=== PATIENT | male | born 1965 | race Two or more races ===

== ENCOUNTER 2017-06-08 19:41 | Inpatient (IN) | payer OTHER ==
[2017-06-08 20:17] VITALS: BMI 31.9
--- NOTE | 2017-06-08 21:37 | HP ---
COWS - Scale Resting Pulse: 0= [place] 80 or Below Sweatin= Chills/Flushing Restless Observation: 1= Difficult to Sit Still Pupil Size: 0= Normal to Room Light Bone or Joint Aches: 2= Severe Diffuse Aches Runny Nose/ Eye Tearin= Runny Nose/Eyes GI Upset > 30mins: 2= Nausea/Diarrhea Tremor Observation: 2= Slight Tremor Visible Yawning Observation: 1= 1-2x During Session Anxiety or Irritability: 2=Irritable/Anxious Goose Flesh Skin: 0=Smooth Skin COWS Score: 13 Admission ROS S - [facility] Chief Complaint: withdrawal sx Allergies/Adverse Reactions: Allergies Allergy/AdvReac Type Severity Reaction Status Date / Time No Known Allergies Allergy Verified 06/08/17 21:39 History of Present Illness: 51 years old male with long history of opiate dependence denies medical issue has depression is admitted to detox Exam Limitations: No Limitations - Ebola screening Have you traveled outside of the country in the last 21 days: No Have you had contact with anyone from an Ebola affected area: No Have you been sick,other than usual withdrawal symptoms: No Do you have a fever: No - Review of Systems Constitutional: Changes in sleep, Weight Stable EENT: reports: Nose Congestion Respiratory: reports: No Symptoms reported Cardiac: reports: No Symptoms Reported GI: reports: Nausea, Poor Fluid Intake, Abdominal cramping : reports: No Symptoms Reported Musculoskeletal: reports: Back Pain, Joint Pain, Muscle Pain, Neck Pain Integumentary: reports: Change in Color (both hands) Neuro: reports: Tremors Endocrine: reports: No Symptoms Reported Hematology: reports: No Symptoms Reported Psychiatric: reports: Judgement Intact, Orientated x3, Depressed Other Systems: Reviewed and Negative Patient History - Patient Medical History Hx Anemia: No Hx Asthma: No Hx Chronic Obstructive Pulmonary Disease (COPD): No Hx Cancer: No Hx Cardiac Disorders: No Hx Congestive Heart Failure: No Hx Hypertension: No Hx Hypercholesterolemia: No Hx Pacemaker: No HX Cerebrovascular Accident: No Hx Seizures: No Hx Dementia: No Hx Diabetes: No Hx Gastrointestinal Disorders: No Hx Liver Disease: No Hx Genitourinary Disorders: No Hx Sexually Transmitted Disorders: No Hx Renal Disease (ESRD): No Hx Thyroid Disease: No Hx Human Immunodeficiency Virus (HIV): No Hx Hepatitis C: No Hx Depression: Yes Hx Suicide Attempt: No Hx Bipolar Disorder: No Hx Schizophrenia: No - Patient Surgical History Past Surgical History: No - PPD History Previous Implant?: Yes Documented Results: Negative w/o proof Implanted On Prior R Admission?: No PPD to be Administered?: Yes - Smoking Cessation Smoking history: Never smoked Have you smoked in the past 12 months: No Hx Chewing Tobacco Use: No Initiated information on smoking cessation: No - Substance & Tx. History Hx Alcohol Use: No Hx Substance Use: Yes Substance Use Type: Heroin Hx Substance Use Treatment: Yes (2009) - Substances Abused Heroin Route: Injection Frequency: Daily Amount used: 14 bags Age of first use: 10 Date of Last Use: 06/07/17 Family Disease History - Family Disease History Family Disease History: Other: Father, Mother Other Family History: only child Admission Physical Exam [facility] - Vital Signs Vital Signs: Vital Signs - 24 hr 06/08/17 20:12 Temperature 99.6 F Pulse Rate 55 L Respiratory 20 Rate Blood Pressure 134/59 - Physical General Appearance: Yes: Appropriately Dressed, Mild Distress, Tremorous, Irritable, Sweating, Anxious HEENTM: Yes: Hearing grossly Normal, Normal ENT Inspection, Normocephalic, Normal Voice Respiratory: Yes: Chest Non-Tender, Lungs Clear, Normal Breath Sounds, No Respiratory Distress, No Accessory Muscle Use Neck: Yes: Supple, Trachea in good position Breast: Yes: Breasts Symetrical Cardiology: Yes: Regular Rhythm, S1, S2, Bradycardia Abdominal: Yes: Non Tender, Soft, Increased Bowel Sounds Genitourinary: Yes: Within Normal Limits Back: Yes: Normal Inspection Musculoskeletal: Yes: full range of Motion, Gait Steady, Back pain, Muscle Pain Extremities: Yes: Normal Inspection, Normal Range of Motion, Non-Tender, Tremors Neurological: Yes: Fully Oriented, Alert, Motor Strength 5/5, Normal Response, Depressed Affect Integumentary: Yes: Warm, Track [place] Lymphatic: Yes: Within Normal Limits - Diagnostic (1) Opioid dependence with withdrawal Current Visit: Yes Status: Acute (2) Depression (emotion) Current Visit: Yes Status: Suspected Qualifiers: Depression Type: dysthymia Qualified Code(s): F34.1 - Dysthymic disorder Cleared for Admission [facility] - Detox or Rehab [facility] Level of Care: Medically Managed Detox Regimen/Protocol: Methadone [facility] Breath Alcohol Content Breath Alcohol Content: 0 Vital Signs - Vital Signs Vital Signs Refused: No Temperature: 99.6 F Temperature Source: Oral Pulse Rate: 55 Respiratory Rate: 20 Blood Pressure: 134/59 BP Location: Left Arm Blood Pressure Position: Sitting - Height Height: 5 ft 7 in - Weight Weight: 204 lb Weight Measurement Method: Standing Scale Body Mass Index (BMI): 31.9 - Bowel Function Bowel Movement: Yes Urine Drug Screen - Control Is Test Valid: Yes - Results Drug Screen Negative: No Urine Drug Screen Results: OPI-Opiates, MTD-Methadone
[2017-06-08] MEDS ORDERED: P-EPHED 60MG/TRIPROLIDI 2.5MG TABLET PO PRN (21:46)
[2017-06-08] MEDS ORDERED: ACETAMINOPHEN 325 MG TABLET (FP) PO PRN (21:46)
[2017-06-08] MEDS ORDERED: IBUPROFEN 400 MG TABLET (FP) PO PRN (21:46)
[2017-06-08] MEDS ORDERED: MAGNESIUM CITRATE 300 ML BOTTLE PO PRN (21:46)
[2017-06-08] MEDS ORDERED: LOPERAMIDE HCL 2 MG CAPSULE PO PRN (21:46)
[2017-06-08] MEDS ORDERED: MAGNESIUM HYDROX 2400MG/30ML ORAL SUSPENSION 30 ML CUP PO PRN (21:46)
[2017-06-08] MEDS ORDERED: guaiFENesin/D-METHORPHAN HB 10 ML UNIT-DOSE CUPS PO PRN (21:46)
[2017-06-08] MEDS ORDERED: MAG HYDROX/AL HYDROX/SIMETH 30 ML UNIT-DOSE CUP PO PRN (21:46)
[2017-06-08] MEDS ORDERED: MENTHOL/PHENOL 1 EACH UD MM PRN (21:46)
[2017-06-08] MEDS ORDERED: METHADONE HCL 10 MG TABLET (FOR DETOX USE ONLY) PO ONE ×2 (21:46→23:00)
[2017-06-08] MEDS ORDERED: BACITRACIN 0.9 GM PACKET TP ONE (21:48)
[2017-06-08] MEDS ORDERED: cloNIDine HCL 0.1 MG TABLET PO PRN (21:49)
[2017-06-08] MEDS: diazePAM 5 MG TABLET PO PRN (22:55)
[2017-06-08] MEDS: CYCLOBENZAPRINE HCL 10 MG TABLET (FP) PO SCH (22:56)
[2017-06-08] MEDS: THIAMINE HCL 100 MG TABLET (FP) PO SCH (22:56)
[2017-06-09] MEDS: diazePAM 5 MG TABLET PO PRN ×3 (05:44→22:10)
[2017-06-09] MEDS: CYCLOBENZAPRINE HCL 10 MG TABLET (FP) PO SCH ×3 (05:44→22:10)
--- NOTE | 2017-06-09 09:30 | CONSULT ---
[facility] Psychiatric Consult - Data Date of interview: 06/09/17 Admission source: Self-referred Identifying data: Mr Perez is a 51 years old single male, father of 5 children, unemployedon SSD, domociled seeking detox treatment for heroin Substance Abuse History: Reports that he started using heroin at age 10, consumes 14 bags daily. Last used on 06/07/17 Medical History: Unremakable Psychiatric History: Denies history of previous psychiaric treatment Physical/Sexual Abuse/Trauma History: Denies history of emotional, physical or sexual abuse as well as DV relationship. Serving in the [employer]. Reports going to a tour to [employer] last year Additional Comment: Reports history of multiple arrests including 3 felony convictions. No parole/probation at present Mental Status Exam - Mental Status Exam Alert and Oriented to: Time, Place, Person Cognitive Function: Fair Patient Appearance: Well Groomed Mood: Depressed Affect: Constricted Patient Behavior: Cooperative Speech Pattern: Clear Voice Loudness: Normal Thought Process: Intact, Goal Oriented Hallucinations: Denies Suicidal Ideation: Denies Homicidal Ideation: Denies Insight/Judgement: Poor Sleep: Fair Appetite: Poor Muscle strength/Tone: Normal Gait/Station: Normal Psychiatric Findings - Problem List ([place] 1, 2,3) (1) Substance induced mood disorder Current Visit: Yes Status: Acute (2) Opioid dependence with withdrawal Current Visit: Yes Status: Acute - Initial Treatment Plan Initial Treatment Plan: Continue inpatient detoxification
[2017-06-09] MEDS ORDERED: METHADONE HCL 10 MG TABLET (FOR DETOX USE ONLY) PO ONE (10:00)
[2017-06-09] MEDS: PRENATAL VITAMINS W/ FOLIC ACID TABLET (FP) PO SCH (10:17)
[2017-06-09 10:48] LABS: MCH 29.9 pg (25.7-33.7); MCHC 34.1 g/dl (32.0-35.9); MEAN CELL VOLUME 87.8 fl (80-96); MEAN PLT VOLUME 8.4 fl (7.5-11.1); PLATELET COUNT 359 K/MM3 (134-434); RDW 13.7 % (11.9-15.9); WHITE BLOOD COUNT 13.3 K/mm3 (4.0-10.0)
[2017-06-09 10:58] LABS: ALBUMIN 3.9 g/dl (3.4-5.0); ALK PHOS 60 U/L (45-117); ANION GAP 11 (8-16); BILIRUBIN,TOTAL 1.2 mg/dL (0.2-1.0); CO2 28 mmol/L (21-32); CREATININE 0.8 mg/dL (0.7-1.3); GLUCOSE,RANDOM 107 mg/dL (74-106); SGOT/AST 16 U/L (15-37); SGPT/ALT 20 U/L (12-78); TOT PROT 7.6 g/dl (6.4-8.2)
--- NOTE | 2017-06-09 14:04 | PN ---
S COWS - Scale Resting Pulse: 0= [place] 80 or Below Sweatin= Chills/Flushing Restless Observation: 1= Difficult to Sit Still Pupil Size: 0= Normal to Room Light Bone or Joint Aches: 0= None Runny Nose/ Eye Tearin= Runny Nose/Eyes GI Upset > 30mins: 2= Nausea/Diarrhea Tremor Observation of Outstretched Hands: 0= None Yawning Observation: 1= 1-2x During Session Anxiety or Irritability: 2=Irritable/Anxious Goose Flesh Skin: 3=Piloerection COWS Score: 12 S Progress Note (SOAP) Subjective: Nausea, Diarrhea, Sweating, Body Aches. Objective: PT. A & O X 2 (DISORIENTED ABOUT DAY / DATE). PT. OBSERVED AMBULATING ON UNIT. NO ACUTE DISTRESS. PT. DENIES CHEST PAIN. 06/09/17 14:00 Vital Signs Temperature 99.4 F 06/09/17 10:26 Pulse Rate 60 06/09/17 10:26 Respiratory Rate 18 06/09/17 10:26 Blood Pressure 145/81 06/09/17 10:26 O2 Sat by Pulse Oximetry (%) Laboratory Tests 06/09/17 06/09/17 06/09/17 08:00 08:00 08:00 WBC 13.3 H RBC 4.98 Hgb 14.9 Hct 43.7 MCV 87.8 MCH 29.9 MCHC 34.1 RDW 13.7 Plt Count 359 MPV 8.4 Sodium 139 Potassium 3.4 L Chloride 100 Carbon Dioxide 28 Anion Gap 11 BUN 16 Creatinine 0.8 Creat Clearance w eGFR > 60 Random Glucose 107 H Calcium 9.0 Total Bilirubin 1.2 H AST 16 ALT 20 Alkaline Phosphatase 60 Total Protein 7.6 Albumin 3.9 RPR Titer Nonreactive LABS NOTED. UA RESULTS PENDING. 06/09/17 14:02 Assessment: 06/09/17 14:01 WITHDRAWAL SYMPTOMS. HYPOKALEMIA. LEUKOCYTOSIS. Plan: CONTINUE DETOX. REPEAT CBC ON 06/11/2017 FOR ELEVATED WBC COUNT. K, 20 MEQ X 1 NOW, THEN 20 MEQ PO BID FOR LOW ADMISSION K LEVEL.
[2017-06-09] MEDS ORDERED: POTASSIUM CHLORIDE TABS 20 MEQ TABLET.ER (FP) PO ONE (14:30)
[2017-06-09] MEDS: POTASSIUM CHLORIDE TABS 20 MEQ TABLET.ER (FP) PO SCH (17:33)
[2017-06-09] MEDS: diphenhydrAMINE HCL 50 MG CAPSULE PO PRN (22:10)
[2017-06-09] MEDS: THIAMINE HCL 100 MG TABLET (FP) PO SCH (22:10)
[2017-06-10] MEDS: CYCLOBENZAPRINE HCL 10 MG TABLET (FP) PO SCH ×3 (06:12→22:21)
[2017-06-10] MEDS ORDERED: METHADONE HCL 5 MG TABLET (FOR DETOX USE ONLY) PO ONE (10:00)
[2017-06-10] MEDS: PRENATAL VITAMINS W/ FOLIC ACID TABLET (FP) PO SCH (10:14)
[2017-06-10] MEDS: POTASSIUM CHLORIDE TABS 20 MEQ TABLET.ER (FP) PO SCH ×2 (10:14→17:56)
--- NOTE | 2017-06-10 15:58 | PN ---
S COWS - Scale Resting Pulse: 1= [place] 81-100 Sweatin=Flushed/Facial Moisture Restless Observation: 3= Extraneous Movement Pupil Size: 0= Normal to Room Light Bone or Joint Aches: 2= Severe Diffuse Aches Runny Nose/ Eye Tearin= Runny Nose/Eyes GI Upset > 30mins: 3= Vomiting/Diarrhea Tremor Observation of Outstretched Hands: 2= Slight Tremor Visible Yawning Observation: 1= 1-2x During Session Anxiety or Irritability: 2=Irritable/Anxious Goose Flesh Skin: 0=Smooth Skin COWS Score: 18 S Progress Note (SOAP) Subjective: Tremor, chills, interrupted sleep, diarrhea Objective: 06/10/17 15:55 Last Vital Signs Temp Pulse Resp BP Pulse Ox 98.2 F 90 18 127/72 06/10/17 13:35 06/10/17 13:35 06/10/17 13:35 06/10/17 13:35 Laboratory Tests 06/09/17 06/09/17 06/09/17 08:00 08:00 08:00 WBC 13.3 H RBC 4.98 Hgb 14.9 Hct 43.7 MCV 87.8 MCH 29.9 MCHC 34.1 RDW 13.7 Plt Count 359 MPV 8.4 Sodium 139 Potassium 3.4 L Chloride 100 Carbon Dioxide 28 Anion Gap 11 BUN 16 Creatinine 0.8 Creat Clearance w eGFR > 60 Random Glucose 107 H Calcium 9.0 Total Bilirubin 1.2 H AST 16 ALT 20 Alkaline Phosphatase 60 Total Protein 7.6 Albumin 3.9 RPR Titer Nonreactive Labs noted: wbc 13.3, k 3.4 Assessment: 06/10/17 15:57 Withdrawal symptoms Noted with leukocytosis and mild hypokalemia Plan: Continue detox Leukocytosis: repeat CBC (already ordered for tomorrow) Hypokalemia: continue PO K+ supplement, repeat K level in AM Admission UA reordered (was not done)
[2017-06-10] MEDS: diazePAM 5 MG TABLET PO PRN (22:21)
[2017-06-10] MEDS: THIAMINE HCL 100 MG TABLET (FP) PO SCH (22:21)
[2017-06-10] MEDS: diphenhydrAMINE HCL 50 MG CAPSULE PO PRN (22:21)
[2017-06-11] MEDS: CYCLOBENZAPRINE HCL 10 MG TABLET (FP) PO SCH ×3 (05:20→22:07)
[2017-06-11] MEDS: diazePAM 5 MG TABLET PO PRN ×2 (05:20→10:06)
[2017-06-11 09:46] LABS: BASOPHIL 0.2 % (0-2.0); EOSINOPHIL 1.3 % (0-4.5); MCH 29.5 pg (25.7-33.7); MCHC 32.8 g/dl (32.0-35.9); MEAN PLT VOLUME 8.2 fl (7.5-11.1); NEUTROPHILS 58.1 % (42.8-82.8); PLATELET COUNT 359 K/MM3 (134-434); RDW 13.8 % (11.9-15.9); WHITE BLOOD COUNT 12.5 K/mm3 (4.0-10.0)
[2017-06-11 09:52] LABS: URINE APPEARANCE CLOUDY; URINE BILIRUBIN NEGATIVE (NEGATIVE); URINE BLOOD NEGATIVE (NEGATIVE); URINE COLOR AMBER; URINE GLUCOSE (UA) NEGATIVE (NEGATIVE); URINE KETONE NEGATIVE (NEGATIVE); URINE NITRITE NEGATIVE (NEGATIVE); URINE UROBILINOGEN 4.0 E.U/dl mg/dL (0.2-1.0)
[2017-06-11 09:53] LABS: URINE PROTEIN 1+ (NEGATIVE)
[2017-06-11] MEDS ORDERED: METHADONE HCL 5 MG TABLET (FOR DETOX USE ONLY) PO ONE (10:00)
[2017-06-11 10:02] LABS: URINE BACTERIA RARE /hpf (NONE SEEN); URINE MUCUS MANY; URINE RBC 12 /hpf (0-3); URINE WBC 272 /hpf (3-5); YEAST FEW
[2017-06-11] MEDS: PRENATAL VITAMINS W/ FOLIC ACID TABLET (FP) PO SCH (10:06)
[2017-06-11] MEDS: POTASSIUM CHLORIDE TABS 20 MEQ TABLET.ER (FP) PO SCH ×2 (10:06→17:07)
--- NOTE | 2017-06-11 11:22 | PN ---
[facility] Progress Note (SOAP) Subjective: Tremors, Stomach Cramping, Interrupted Sleep, Body Aches, sweating. Objective: PT. A & O X 3. NO ACUTE DISTRESS. 06/11/17 11:20 Vital Signs Temperature 98.5 F 06/11/17 05:51 Pulse Rate 72 06/11/17 05:51 Respiratory Rate 18 06/11/17 05:51 Blood Pressure 148/91 06/11/17 05:51 O2 Sat by Pulse Oximetry (%) Laboratory Tests 06/09/17 06/09/17 06/09/17 08:00 08:00 08:00 WBC 13.3 H RBC 4.98 Hgb 14.9 Hct 43.7 MCV 87.8 MCH 29.9 MCHC 34.1 RDW 13.7 Plt Count 359 MPV 8.4 Neutrophils % Lymphocytes % Monocytes % Eosinophils % Basophils % Sodium 139 Potassium 3.4 L Chloride 100 Carbon Dioxide 28 Anion Gap 11 BUN 16 Creatinine 0.8 Creat Clearance w eGFR > 60 Random Glucose 107 H Calcium 9.0 Total Bilirubin 1.2 H AST 16 ALT 20 Alkaline Phosphatase 60 Ammonia Total Protein 7.6 Albumin 3.9 Urine Color Urine Appearance Urine pH Urine Protein Urine Glucose (UA) Urine Ketones Urine Blood Urine Nitrite Urine Bilirubin Urine Urobilinogen Urine RBC Urine WBC Ur Epithelial Cells Urine Bacteria Urine Mucus Urine Yeast RPR Titer Nonreactive 06/11/17 06/11/17 06/11/17 07:00 07:00 07:00 WBC 12.5 H RBC 5.37 Hgb 15.9 Hct 48.4 MCV 90.0 MCH 29.5 MCHC 32.8 RDW 13.8 Plt Count 359 MPV 8.2 Neutrophils % 58.1 Lymphocytes % 33.8 Monocytes % 6.6 Eosinophils % 1.3 Basophils % 0.2 Sodium Potassium 3.8 Chloride Carbon Dioxide Anion Gap BUN Creatinine Creat Clearance w eGFR Random Glucose Calcium Total Bilirubin AST ALT Alkaline Phosphatase Ammonia 33.43 H Total Protein Albumin Urine Color Urine Appearance Urine pH Urine Protein Urine Glucose (UA) Urine Ketones Urine Blood Urine Nitrite Urine Bilirubin Urine Urobilinogen Urine RBC Urine WBC Ur Epithelial Cells Urine Bacteria Urine Mucus Urine Yeast RPR Titer 06/11/17 08:00 WBC RBC Hgb Hct MCV MCH MCHC RDW Plt Count MPV Neutrophils % Lymphocytes % Monocytes % Eosinophils % Basophils % Sodium Potassium Chloride Carbon Dioxide Anion Gap BUN Creatinine Creat Clearance w eGFR Random Glucose Calcium Total Bilirubin AST ALT Alkaline Phosphatase Ammonia Total Protein Albumin Urine Color [place] Urine Appearance Cloudy Urine pH 7.0 Urine Protein 1+ H Urine Glucose (UA) Negative Urine Ketones Negative Urine Blood Negative Urine Nitrite Negative Urine Bilirubin Negative Urine Urobilinogen 4.0 e.u/dl Urine RBC 12 Urine WBC 272 Ur Epithelial Cells Rare Urine Bacteria Rare Urine Mucus Many Urine Yeast Few RPR Titer LABS NOTED. RESULTS OF REPEAT CBC, K, AND AMMONIA LEVELS NOTED. 06/11/17 11:24 Assessment: 06/11/17 11:20 WITHDRAWAL SYMPTOMS. Plan: CONTINUE DETOX. START LACTULOSE, 20 GM PO BID. D/C ACETAMINOPHEN. REPEAT UA WITH URINE C + S FOR ELEVATED UA WBC LEVEL. START PROHYLACTIC BACTRIM PO BID X 10 DAYS FOR POSSIBLE UTI. INCREASE DAILY PO FLUID INTAKE.
[2017-06-11] MEDS: LACTULOSE 20 GM/30 ML UDC (FOR ORAL USE ONLY) PO SCH ×2 (13:01→22:08)
[2017-06-11] MEDS: SULFAMETHOXAZOLE/TRIMETHOPRIM 800MG/160MG D.S. TABLET PO SCH ×2 (13:01→22:07)
--- NOTE | 2017-06-11 17:02 | EKG ---
Test Reason : Blood Pressure : / mmHG Vent. Rate : 060 BPM Atrial Rate : 060 BPM P-R Int : 112 ms QRS Dur : 094 ms QT Int : 446 ms P-R-T Axes : 063 010 056 degrees QTc Int : 446 ms NORMAL SINUS RHYTHM WITH SINUS ARRHYTHMIA NORMAL ECG NO PREVIOUS ECGS AVAILABLE Confirmed by ETHAN BENAVIDEZ, JETT ([id number]) on 06/11/2017 5:02:17 PM Referred By: Confirmed By:JETT LONG MD
[2017-06-11] MEDS: THIAMINE HCL 100 MG TABLET (FP) PO SCH (22:07)
[2017-06-11] MEDS: diphenhydrAMINE HCL 50 MG CAPSULE PO PRN (22:08)
[2017-06-12] MEDS: CYCLOBENZAPRINE HCL 10 MG TABLET (FP) PO SCH ×3 (05:34→22:41)
[2017-06-12] MEDS ORDERED: ONDANSETRON *ODT* 4 MG TABLET SL PRN (09:49)
[2017-06-12] MEDS ORDERED: LIDOCAINE 5% TOPICAL PATCH TP ONE (09:50)
[2017-06-12] MEDS ORDERED: METHADONE HCL 10 MG TABLET (FOR DETOX USE ONLY) PO ONE (10:00)
[2017-06-12] MEDS: PRENATAL VITAMINS W/ FOLIC ACID TABLET (FP) PO SCH (10:44)
[2017-06-12] MEDS: POTASSIUM CHLORIDE TABS 20 MEQ TABLET.ER (FP) PO SCH ×2 (10:44→17:18)
[2017-06-12] MEDS: LACTULOSE 20 GM/30 ML UDC (FOR ORAL USE ONLY) PO SCH ×2 (10:45→22:40)
[2017-06-12] MEDS: SULFAMETHOXAZOLE/TRIMETHOPRIM 800MG/160MG D.S. TABLET PO SCH ×2 (10:45→22:40)
--- NOTE | 2017-06-12 12:00 | PN ---
[facility] Progress Note (SOAP) Subjective: Body Aches, Interrupted Sleep, Nausea,H/A, Diarrhea. Objective: PT. A & O X 2 (DISORIENTED ABOUT DAY /DATE). PT. OBSERVED AMBULATING ON UNIT. NO ACUTE DISTRESS. 06/12/17 11:56 Vital Signs Temperature 98.4 F 06/12/17 09:03 Pulse Rate 98 H 06/12/17 09:03 Respiratory Rate 18 06/12/17 09:03 Blood Pressure 112/68 06/12/17 09:03 O2 Sat by Pulse Oximetry (%) Laboratory Tests 06/09/17 06/09/17 06/09/17 08:00 08:00 08:00 WBC 13.3 H RBC 4.98 Hgb 14.9 Hct 43.7 MCV 87.8 MCH 29.9 MCHC 34.1 RDW 13.7 Plt Count 359 MPV 8.4 Neutrophils % Lymphocytes % Monocytes % Eosinophils % Basophils % Sodium 139 Potassium 3.4 L Chloride 100 Carbon Dioxide 28 Anion Gap 11 BUN 16 Creatinine 0.8 Creat Clearance w eGFR > 60 Random Glucose 107 H Calcium 9.0 Total Bilirubin 1.2 H AST 16 ALT 20 Alkaline Phosphatase 60 Ammonia Total Protein 7.6 Albumin 3.9 Urine Color Urine Appearance Urine pH Ur Specific [place] Urine Protein Urine Glucose (UA) Urine Ketones Urine Blood Urine Nitrite Urine Bilirubin Urine Urobilinogen Urine RBC Urine WBC Ur Epithelial Cells Urine Bacteria Urine Mucus Urine Yeast RPR Titer Nonreactive 06/11/17 06/11/17 06/11/17 07:00 07:00 07:00 WBC 12.5 H RBC 5.37 Hgb 15.9 Hct 48.4 MCV 90.0 MCH 29.5 MCHC 32.8 RDW 13.8 Plt Count 359 MPV 8.2 Neutrophils % 58.1 Lymphocytes % 33.8 Monocytes % 6.6 Eosinophils % 1.3 Basophils % 0.2 Sodium Potassium 3.8 Chloride Carbon Dioxide Anion Gap BUN Creatinine Creat Clearance w eGFR Random Glucose Calcium Total Bilirubin AST ALT Alkaline Phosphatase Ammonia 33.43 H Total Protein Albumin Urine Color Urine Appearance Urine pH Ur Specific [place] Urine Protein Urine Glucose (UA) Urine Ketones Urine Blood Urine Nitrite Urine Bilirubin Urine Urobilinogen Urine RBC Urine WBC Ur Epithelial Cells Urine Bacteria Urine Mucus Urine Yeast RPR Titer 06/11/17 08:00 WBC RBC Hgb Hct MCV MCH MCHC RDW Plt Count MPV Neutrophils % Lymphocytes % Monocytes % Eosinophils % Basophils % Sodium Potassium Chloride Carbon Dioxide Anion Gap BUN Creatinine Creat Clearance w eGFR Random Glucose Calcium Total Bilirubin AST ALT Alkaline Phosphatase Ammonia Total Protein Albumin Urine Color [place] Urine Appearance Cloudy Urine pH 7.0 Ur Specific [place] 1.020 Urine Protein 1+ H Urine Glucose (UA) Negative Urine Ketones Negative Urine Blood Negative Urine Nitrite Negative Urine Bilirubin Negative Urine Urobilinogen 4.0 e.u/dl Urine RBC 12 Urine WBC 272 Ur Epithelial Cells Rare Urine Bacteria Rare Urine Mucus Many Urine Yeast Few RPR Titer LABS NOTED. REPEAT UA AND URINE C + S NOT YET COLLECTED. 06/12/17 11:58 Assessment: 06/12/17 11:57 WITHDRAWAL SYMPTOMS. Plan: CONTINUE DETOX. INCREASE DAILY PO FLUID INTAKE.
[2017-06-12] MEDS ORDERED: LIDOCAINE PATCH REMOVAL MC SCH (22:00)
[2017-06-12] MEDS: THIAMINE HCL 100 MG TABLET (FP) PO SCH (22:41)
[2017-06-13] MEDS: diphenhydrAMINE HCL 50 MG CAPSULE PO PRN (00:33)
[2017-06-13] MEDS: CYCLOBENZAPRINE HCL 10 MG TABLET (FP) PO SCH ×2 (05:33→14:08)
[2017-06-13] MEDS ORDERED: METHADONE HCL 5 MG TABLET (FOR DETOX USE ONLY) PO ONE (06:00)
[2017-06-13] MEDS: SULFAMETHOXAZOLE/TRIMETHOPRIM 800MG/160MG D.S. TABLET PO SCH (10:55)
[2017-06-13] MEDS: LACTULOSE 20 GM/30 ML UDC (FOR ORAL USE ONLY) PO SCH (10:55)
[2017-06-13] MEDS: PRENATAL VITAMINS W/ FOLIC ACID TABLET (FP) PO SCH (10:55)
[2017-06-13] MEDS: POTASSIUM CHLORIDE TABS 20 MEQ TABLET.ER (FP) PO SCH (13:35)
[2017-06-13 14:00] VITALS: BP 124/84; PULSE 85; TEMP 97
--- NOTE | 2017-06-13 14:56 | PN ---
[facility] Progress Note Note: Asked to reevaluate the patient due to his inappropriate,reluctant and manipulative behavior upon discharge from the unit.He appears stable,with clear comprehensive speech,euthymic mood with full range of affect congruent to mood, not suicidal,not homicidal.patient has not show evidence of psychosis.Patient reports he is ready for discharge to inpatient rehabilitation and waiting for the referral.Patient is stable for discharge today.
--- NOTE | 2017-06-13 15:09 | DS ---
[facility] Detox Discharge Summary Admission Date: 06/08/17 Discharge Date: 06/13/17 - History Present History: Opioid Dependence Additional Comments: PATIENT REFERRED TO [facility] ([place], [place] FOR AFTERCARE. DESPITE RECOMMENDATION FROM [employer], PATIENT DID NOT SUBMIT URINE C + S PRESCRIBED ON WHILE ADMITTED FOR DETOX. COPIES OF ALL LAB VALUES DRAWN WHILE PATIENT ADMITTED FOR DETOX GIVEN TO PATIENT AT TIME OF DISCHARGE. PATIENT ADVISED TO FOLLOW-UP WITH [facility] ([place], [place] AFTER DISCHARGE FROM DETOX FOR MEDICAL ASSESSMENT. PATIENT WAS DISCHARGED FROM UNIT IN STABLE MEDICAL CONDITION. Pertinent Past History: Depression. - Physical Exam Results Vital Signs: Vital Signs Temperature 97.0 F L 06/13/17 13:58 Pulse Rate 85 06/13/17 13:58 Respiratory Rate 16 06/13/17 13:58 Blood Pressure 124/84 06/13/17 13:58 O2 Sat by Pulse Oximetry (%) Pertinent Admission Physical Exam Findings: WITHDRAWAL SYMPTOMS. Laboratory Tests 06/09/17 06/09/17 06/09/17 08:00 08:00 08:00 WBC 13.3 H RBC 4.98 Hgb 14.9 Hct 43.7 MCV 87.8 MCH 29.9 MCHC 34.1 RDW 13.7 Plt Count 359 MPV 8.4 Neutrophils % Lymphocytes % Monocytes % Eosinophils % Basophils % Sodium 139 Potassium 3.4 L Chloride 100 Carbon Dioxide 28 Anion Gap 11 BUN 16 Creatinine 0.8 Creat Clearance w eGFR > 60 Random Glucose 107 H Calcium 9.0 Total Bilirubin 1.2 H AST 16 ALT 20 Alkaline Phosphatase 60 Ammonia Total Protein 7.6 Albumin 3.9 Urine Color Urine Appearance Urine pH Ur Specific [place] Urine Protein Urine Glucose (UA) Urine Ketones Urine Blood Urine Nitrite Urine Bilirubin Urine Urobilinogen Urine RBC Urine WBC Ur Epithelial Cells Urine Bacteria Urine Mucus Urine Yeast RPR Titer Nonreactive 06/11/17 06/11/17 06/11/17 07:00 07:00 07:00 WBC 12.5 H RBC 5.37 Hgb 15.9 Hct 48.4 MCV 90.0 MCH 29.5 MCHC 32.8 RDW 13.8 Plt Count 359 MPV 8.2 Neutrophils % 58.1 Lymphocytes % 33.8 Monocytes % 6.6 Eosinophils % 1.3 Basophils % 0.2 Sodium Potassium 3.8 Chloride Carbon Dioxide Anion Gap BUN Creatinine Creat Clearance w eGFR Random Glucose Calcium Total Bilirubin AST ALT Alkaline Phosphatase Ammonia 33.43 H Total Protein Albumin Urine Color Urine Appearance Urine pH Ur Specific [place] Urine Protein Urine Glucose (UA) Urine Ketones Urine Blood Urine Nitrite Urine Bilirubin Urine Urobilinogen Urine RBC Urine WBC Ur Epithelial Cells Urine Bacteria Urine Mucus Urine Yeast RPR Titer 06/11/17 08:00 WBC RBC Hgb Hct MCV MCH MCHC RDW Plt Count MPV Neutrophils % Lymphocytes % Monocytes % Eosinophils % Basophils % Sodium Potassium Chloride Carbon Dioxide Anion Gap BUN Creatinine Creat Clearance w eGFR Random Glucose Calcium Total Bilirubin AST ALT Alkaline Phosphatase Ammonia Total Protein Albumin Urine Color [place] Urine Appearance Cloudy Urine pH 7.0 Ur Specific [place] 1.020 Urine Protein 1+ H Urine Glucose (UA) Negative Urine Ketones Negative Urine Blood Negative Urine Nitrite Negative Urine Bilirubin Negative Urine Urobilinogen 4.0 e.u/dl Urine RBC 12 Urine WBC 272 Ur Epithelial Cells Rare Urine Bacteria Rare Urine Mucus Many Urine Yeast Few RPR Titer LABS NOTED. - Treatment Hospital Course: Detox Protocol Followed, Detoxed Safely, Responded well, Discharged Condition Good, Rehab Referral Accepted Patient has Accepted a Rehab Referral to: [facility] ([place], [place] - Medication Discharge Medications: Ambulatory Orders NK [No Known Home Medication] 06/08/17 - Diagnosis (1) Opioid dependence with withdrawal Current Visit: Yes Status: Acute (2) Substance induced mood disorder Current Visit: Yes Status: Acute (3) Depression (emotion) Current Visit: Yes Status: Suspected Qualifiers: Depression Type: dysthymia Qualified Code(s): F34.1 - Dysthymic disorder - AMA Did Patient Leave Against Medical Advice: No
== END 2017-06-13 15:00 | disposition home or self-care (01) | DRG 773 ==
LOC: YASAS 19:41 → Y3N 22:01
PROVIDERS: ADMIT Internal Medicine; ATTEND Internal Medicine
PROC: HZ2ZZZZ Detoxification Services for Substance Abuse Treatment (ICD-10-PCS; principal; 2017-06-08)
DX: F11.23 Opioid dependence with withdrawal (principal); F19.24 Other psychoactive substance dependence with psychoactive substance-induced mood disorder; F34.1 Dysthymic disorder
CPT/HCPCS: 36415; 80053; 81003; 81015; 82140; 84132; 85025; 85027; 86593; 93005; 93010